=== PATIENT | male | born 1960 | race African-American/Black ===

== ENCOUNTER 2016-05-31 09:42 | Inpatient (IN) | payer OTHER ==
[2016-05-31 10:35] VITALS: BMI 23.6
--- NOTE | 2016-05-31 13:22 | HP ---
Admission ROS [facility] Chief Complaint: REHAB TX FOR ALCOHOL AND COCAINE DEPENDENCE Allergies/Adverse Reactions: Allergies Allergy/AdvReac Type Severity Reaction Status Date / Time Interferons Allergy Severe Verified 05/31/16 14:51 ribavirin Allergy Severe Verified 05/31/16 14:51 Exam Limitations: No Limitations - Ebola screening Have you traveled outside of the country in the last 21 days: No Have you had contact with anyone from an Ebola affected area: No Have you been sick,other than usual withdrawal symptoms: No Do you have a fever: No - Review of Systems Constitutional: Changes in sleep, Unintentional Wgt. Loss EENT: reports: Blurred Vision (WEARS GLASSESMISSI;NG TEETH), Nose Congestion, Dental Problems (MISSING TEETH) Respiratory: reports: No Symptoms reported Cardiac: reports: Lightheadedness GI: reports: Indigestion (WAS ON PPI IN THE PAST) : reports: Frequency Musculoskeletal: reports: Back Pain, Joint Pain (ARTHRITIS OF HAND JOINTS; CARPAL TUNNEL SYNDROME RIGHT HAND.), Other (HX NEUROPATHY BOTH LEGS;) Patient History - Patient Medical History Hx Anemia: Yes (NO MED) Hx Asthma: No Hx Chronic Obstructive Pulmonary Disease (COPD): No Hx Cardiac Disorders: Yes (CHEST PAIN IN THE PAST) Hx Hypertension: Yes (WAS ON METOPROLOL AND HYDROCHLOROTHIAZIDE- BUT NOT TAKING NOW DUE TO LOW BP) Hx Hypercholesterolemia: No HX Cerebrovascular Accident: No Hx Seizures: No Hx Diabetes: Yes (BORDERLINE DM--NO MED BUT LIFESTYLE CHANGES) Hx Gastrointestinal Disorders: Yes (GERD--NOT CURRENTLY ON MED) Hx Genitourinary Disorders: No Hx Sexually Transmitted Disorders: No Hx Renal Disease (ESRD): No Hx Thyroid Disease: No Hx Human Immunodeficiency Virus (HIV): No (NEGATIVE HX) Hx Hepatitis C: Yes (TREATED) Hx Depression: Yes (AND ANXIETY-ON MEDS) Hx Suicide Attempt: No (DENIES) Hx Bipolar Disorder: No Hx Schizophrenia: Yes - Patient Surgical History Past Surgical History: Yes Hx Abdominal Surgery: Yes (LIVER BIOPSY FOR HEP C IN ) Hx Appendectomy: No Hx Cholecystectomy: No Hx Genitourinary Surgery: No Hx Orthopedic Surgery: No Anesthesia Reaction: No - PPD History Previous Implant?: Yes (PPD+ HX WITH INH +B6 TX FOR ONE AND HALF YRS) Documented Results: Positive w/o proof Implanted On Prior R Admission?: No Results: CXR TBD PPD to be Administered?: No - Reproductive History Patient is a Female of Child Bearing Age (11 -55 yrs old): No (MALE) - Smoking Cessation Smoking history: Current every day smoker Have you smoked in the past 12 months: Yes Aproximately how many cigarettes per day: 10 Hx Chewing Tobacco Use: No Initiated information on smoking cessation: Yes 'Breaking Loose' booklet given: 05/31/16 - Substance & Tx. History Hx Alcohol Use: Yes (BARCADI/VODKA/BEER) Hx Substance Use: Yes (COCAINE) Substance Use Type: Cocaine Hx Substance Use Treatment: Yes (PROJECT RENEWAL-DETOX) - Substances Abused Alcohol Route: Oral Frequency: 1-3 times last 30 days Amount used: 8 22 OZ/ 1/2 PT Age of first use: 26 Date of Last Use: 05/27/16 Cocaine Route: Inhalation (AND SMOKING) Frequency: 1-3 times last 30 days Amount used: $60-80 Age of first use: 19 Date of Last Use: 05/28/16 Family Disease History - Family Disease History Family Disease History: Diabetes: Grandparent (GF/GM-), Heart Disease: Grandparent, Mother (HTN), Other: Mother Admission Physical Exam [facility] - Vital Signs Vital Signs: Vital Signs - 24 hr 05/31/16 10:33 Temperature 96.1 F L Pulse Rate 58 L Respiratory 18 Rate Blood Pressure 128/76 - Physical General Appearance: Yes: Moderate Distress, Irritable, Anxious HEENTM: Yes: EOMI, Normocephalic, NIKKIE Respiratory: Yes: Chest Non-Tender, Lungs Clear, Normal Breath Sounds, No Respiratory Distress Neck: Yes: Supple, Trachea in good position Breast: Yes: Breast Exam Deferred Cardiology: Yes: Regular Rhythm, Regular Rate, S1, S2 Abdominal: Yes: Normal Bowel Sounds, Non Tender, Soft Genitourinary: Yes: Other (N/C) Back: Yes: Within Normal Limits Musculoskeletal: Yes: full range of Motion, Gait Steady Extremities: Yes: Normal Range of Motion, Non-Tender Neurological: Yes: singing messenger II-XII NML intact, Fully Oriented, Alert Integumentary: Yes: Normal Color, Dry, Warm Lymphatic: Yes: Within Normal Limits - Diagnostic (1) Alcohol dependence with uncomplicated withdrawal Current Visit: Yes Status: Chronic (2) Cocaine dependence, uncomplicated Current Visit: Yes Status: Chronic (3) HTN (hypertension) Current Visit: Yes Status: Chronic Qualifiers: Qualified Code(s): I10 - Essential (primary) hypertension Cleared for Admission [facility] - Detox or Rehab Claeared for Rehab Admission: Yes [facility] Breath Alcohol Content Breath Alcohol Content: 0 Urine Drug Screen - Results Drug Screen Negative: No Urine Drug Screen Results: ALLY-Cocaine
[2016-05-31] MEDS ORDERED: MAG HYDROX/AL HYDROX/SIMETH 30 ML UNIT-DOSE CUP PO PRN (13:58)
[2016-05-31] MEDS ORDERED: MENTHOL/PHENOL 1 EACH UD MM PRN (13:58)
[2016-05-31] MEDS ORDERED: IBUPROFEN 400 MG TABLET (FP) PO PRN (13:58)
[2016-05-31] MEDS ORDERED: MAGNESIUM CITRATE 300 ML BOTTLE PO PRN (13:58)
[2016-05-31] MEDS ORDERED: guaiFENesin/D-METHORPHAN HB 10 ML UNIT-DOSE CUPS PO PRN (13:58)
[2016-05-31] MEDS ORDERED: diphenhydrAMINE HCL 50 MG CAPSULE PO PRN (13:58)
[2016-05-31] MEDS ORDERED: LOPERAMIDE HCL 2 MG CAPSULE PO PRN (13:58)
[2016-05-31] MEDS ORDERED: ACETAMINOPHEN 325 MG TABLET (FP) PO PRN (13:58)
[2016-05-31] MEDS ORDERED: MAGNESIUM HYDROX 2400MG/30ML ORAL SUSPENSION 30 ML CUP PO PRN (13:58)
[2016-05-31] MEDS ORDERED: NICOTINE POLACRILEX 2 MG GUM BUC PRN (13:58)
[2016-05-31] MEDS ORDERED: hydrOXYzine PAMOATE 25 MG CAPSULE (FP) PO PRN (13:58)
[2016-05-31] MEDS ORDERED: P-EPHED 60MG/TRIPROLIDI 2.5MG TABLET PO PRN (13:58)
[2016-05-31] MEDS: NICOTINE 14 MG/24 HOURS TOPICAL PATCH TD SCH (15:57)
[2016-05-31 16:01] LABS: MCH 30.5 pg (25.7-33.7); MCHC 33.8 g/dl (32.0-35.9); MEAN CELL VOLUME 90.3 fl (80-96); MEAN PLT VOLUME 8.5 fl (7.5-11.1); PLATELET COUNT 226 K/MM3 (134-434); WHITE BLOOD COUNT 5.7 K/mm3 (4.0-10.0)
[2016-05-31 16:05] LABS: ALBUMIN 3.9 g/dl (3.4-5.0); ALK PHOS 94 U/L (45-117); ANION GAP 9 (8-16); BILIRUBIN,TOTAL 0.9 mg/dL (0.2-1.0); CALCIUM 8.8 mg/dL (8.5-10.1); CO2 29 mmol/L (21-32); GLUCOSE,RANDOM 106 mg/dL (74-106); SGOT/AST 22 U/L (15-37); SGPT/ALT 21 U/L (12-78); TOT PROT 7.3 g/dl (6.4-8.2)
[2016-05-31 18:08] LABS: URINE APPEARANCE CLEAR; URINE BILIRUBIN NEGATIVE (NEGATIVE); URINE BLOOD NEGATIVE (NEGATIVE); URINE COLOR YELLOW; URINE GLUCOSE (UA) NEGATIVE (NEGATIVE); URINE KETONE TRACE (NEGATIVE); URINE LEUK ESTERASE NEGATIVE (NEGATIVE); URINE NITRITE NEGATIVE (NEGATIVE); URINE PROTEIN NEGATIVE (NEGATIVE); URINE UROBILINOGEN 4.0 E.U/dl E.U./dl (0.2-1.0)
[2016-05-31] MEDS: MIRTAZAPINE 15 MG TABLET (FP) PO SCH (22:14)
[2016-05-31] MEDS: GABAPENTIN 400 MG CAPSULE (FP) PO SCH (22:14)
[2016-05-31] MEDS: THIAMINE HCL 100 MG TABLET (FP) PO SCH (22:14)
[2016-06-01] MEDS: METOPROLOL TARTRATE 25 MG TABLET (FP) PO SCH (09:39)
[2016-06-01] MEDS: GABAPENTIN 400 MG CAPSULE (FP) PO SCH ×2 (09:39→21:33)
[2016-06-01] MEDS: PRENATAL VITAMINS W/ FOLIC ACID TABLET (FP) PO SCH (09:39)
[2016-06-01] MEDS: NICOTINE 14 MG/24 HOURS TOPICAL PATCH TD SCH (09:40)
[2016-06-01 11:02] LABS: HIV 1 & 2 AB NEGATIVE; HIV 1 AGp24 NEGATIVE
--- NOTE | 2016-06-01 11:06 | EKG ---
Test Reason : Blood Pressure : / mmHG Vent. Rate : 057 BPM Atrial Rate : 057 BPM P-R Int : 118 ms QRS Dur : 082 ms QT Int : 418 ms P-R-T Axes : 025 042 058 degrees QTc Int : 406 ms SINUS BRADYCARDIA OTHERWISE NORMAL ECG NO PREVIOUS ECGS AVAILABLE Confirmed by FROILAN FRASER, MAGALY ([id number]) on 06/01/2016 11:06:29 AM Referred By: Angélica Norris Confirmed By:MAGALY MCGOVERN MD
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
[2016-06-01] MEDS: MIRTAZAPINE 15 MG TABLET (FP) PO SCH (21:33)
[2016-06-01] MEDS: THIAMINE HCL 100 MG TABLET (FP) PO SCH (21:33)
[2016-06-02] MEDS: METOPROLOL TARTRATE 25 MG TABLET (FP) PO SCH (09:55)
[2016-06-02] MEDS: PRENATAL VITAMINS W/ FOLIC ACID TABLET (FP) PO SCH (09:55)
[2016-06-02] MEDS: GABAPENTIN 400 MG CAPSULE (FP) PO SCH ×2 (09:55→21:29)
[2016-06-02] MEDS: NICOTINE 14 MG/24 HOURS TOPICAL PATCH TD SCH (09:55)
[2016-06-02] MEDS: THIAMINE HCL 100 MG TABLET (FP) PO SCH (21:29)
[2016-06-02] MEDS: MIRTAZAPINE 15 MG TABLET (FP) PO SCH (21:29)
[2016-06-02] MEDS ORDERED: QUEtiapine FUMARATE 25 MG TABLET (FP) PO SCH (22:00)
[2016-06-03 06:33] VITALS: BP 124/88; PULSE 58; TEMP 98.8
[2016-06-03] MEDS: PRENATAL VITAMINS W/ FOLIC ACID TABLET (FP) PO SCH (10:02)
[2016-06-03] MEDS: NICOTINE 14 MG/24 HOURS TOPICAL PATCH TD SCH (10:02)
[2016-06-03] MEDS: METOPROLOL TARTRATE 25 MG TABLET (FP) PO SCH (10:02)
[2016-06-03] MEDS: GABAPENTIN 400 MG CAPSULE (FP) PO SCH (10:02)
--- NOTE | 2016-06-03 11:07 | PN ---
Psychiatric Progress Note Vital Signs: Vital Signs Period Temp Pulse Resp BP Sys/[place] Pulse Ox Last 24 Hr 98.8 F 58 18-18 124/88 Date of Session: 06/03/16 Chief Complaint:: discharge HPI: Patient addressing alcohol cocaine, nicotine dependence comorbid MDD. ROS: Anemia HTN, GERD, (no meds), Neuropathy both legs medically managed. Current Medications: Active Medications Generic Name Dose Route Start Last Admin Trade Name Freq PRN Reason Stop Dose Admin Acetaminophen 650 mg 05/31/16 13:58 Tylenol - PO Q4H PRN PAIN Al Hydroxide/Mg Hydroxide 30 ml 05/31/16 13:58 Mylanta Oral Suspension - PO Q6H PRN DYSPEPSIA Diphenhydramine HCl 50 mg 05/31/16 13:58 Benadryl - PO HSMR1 PRN INSOMNIA Eucalyptus/Menthol/Phenol/Sorbitol 1 each 05/31/16 13:58 Cepastat Lozenge - MM Q4H PRN SORE THROAT Gabapentin 400 mg 05/31/16 22:00 06/03/16 10:02 Neurontin - PO 400 mg BID FAITH Administration Guaifenesin 10 ml 05/31/16 13:58 Robitussin Dm - PO Q6H PRN COUGH Hydroxyzine Pamoate 25 mg 05/31/16 13:58 Vistaril - PO Q4H PRN AGITATION Ibuprofen 400 mg 05/31/16 13:58 Motrin - PO Q6H PRN SEVERE PAIN Loperamide HCl 4 mg 05/31/16 13:58 Imodium - PO Q6H PRN DIARRHEA Magnesium Citrate 300 ml 05/31/16 13:58 Citroma - PO Q48H PRN CONSTIPATION Magnesium Hydroxide 30 ml 05/31/16 13:58 Milk Of Magnesia - PO DAILY PRN CONSTIPATION Metoprolol Tartrate 25 mg 06/01/16 10:00 06/03/16 10:02 Lopressor - PO 25 mg DAILY FAITH Administration Mirtazapine 15 mg 05/31/16 22:00 06/02/16 21:29 Remeron - PO 15 mg HS FAITH Administration Nicotine 14 mg 05/31/16 14:17 06/03/16 10:02 Nicoderm Patch - TD Not Given DAILY FAITH Nicotine Polacrilex 2 mg 05/31/16 13:58 Nicorette Gum - BUC Q2H PRN NICOTINE REPLACEMENT RX Multivit/Folic Acid/Iron 1 tab 06/01/16 10:00 06/03/16 10:02 Vitamins (Sjr) - PO 1 tab DAILY FAITH Administration Pseudoephedrine/Triprolidine 1 combo 05/31/16 13:58 Actifed - PO TID PRN NASAL CONGESTION Quetiapine Fumarate 25 mg 06/02/16 22:00 06/02/16 21:30 Seroquel - PO 25 mg HS FAITH Administration Thiamine HCl 100 mg 05/31/16 22:00 06/02/16 21:29 Vitamin B1 - PO 100 mg HS FAITH Administration Current Side Effect: No Lab tests ordered: No Lab tests reviewed: Yes Provider note:: Patient reports he is leaving treatment AMA, explored with the patient reasons for this decision, het reports he has his personal unfinished busines that needs his presents. Patient was encouraged to focus on his recovery but he continued with discharge process. Scripts provided, no side- effects reported, patient is stable for ama discharge. Total face to face time:: 30 Mental Status Exam - Mental Status Exam Alert and Oriented to: Time, Place, Person Cognitive Function: Good Patient Appearance: Well Groomed Mood: Hopeful Affect: Appropriate, Mood Congruent Patient Behavior: Appropriate, Cooperative Speech Pattern: Clear, Appropriate Voice Loudness: Normal Thought Process: Intact Thought Disorder: Not Present Hallucinations: None Suicidal Ideation: None Homicidal Ideation: None Insight/Judgement: Good Sleep: Well Appetite: Good Muscle strength/Tone: Normal Gait/Station: Normal Psychiatric Treatment Plan - Problem List (1) Alcohol dependence Current Visit: Yes (2) Cocaine dependence Current Visit: Yes (3) Major depressive disorder with psychotic features Current Visit: Yes Qualifiers: Active/Remission status: currently active Major depression episode severity: severe (4) Nicotine dependence Current Visit: Yes
== END 2016-06-03 11:10 | disposition left against medical advice (07) | DRG 770 ==
LOC: YASAS 09:42 → Y5N 13:25
PROVIDERS: ADMIT Psychiatry & Neurology Psychiatry; ATTEND Psychiatry & Neurology Psychiatry
PROC: HZ42ZZZ Group Counseling for Substance Abuse Treatment, Cognitive-Behavioral (ICD-10-PCS; principal; 2016-06-03)
DX: F10.230 Alcohol dependence with withdrawal, uncomplicated (principal); F14.20 Cocaine dependence, uncomplicated; F17.210 Nicotine dependence, cigarettes, uncomplicated; F33.3 Major depressive disorder, recurrent, severe with psychotic symptoms; I10 Essential (primary) hypertension; E11.9 Type 2 diabetes mellitus without complications; Z59.0 Homelessness
CPT/HCPCS: 36415; 71020-TC; 80053; 81003; 85027; 86593; 87389; 93005; 93010